=== PATIENT | female | born 1980 | race Caucasian/White ===

== ENCOUNTER 2022-02-28 06:53 | Inpatient (IN) | payer BC ==
[2022-02-28] MEDS ORDERED: Sodium Chloride 0.9% 10 ML Syringe FLUSH PRN (07:06)
[2022-02-28] MEDS ORDERED: ceFAZolin 2 GM in Sodium Chloride 0.9% 50 ML IV ONE (07:06)
[2022-02-28] MEDS ORDERED: Oxytocin/Lactated Ringers 10 UNIT/1,000 ML BAG IV SCH (07:15)
[2022-02-28] MEDS: Lactated Ringers 1,000 ML IV SCH ×2 (07:38→09:46)
[2022-02-28] MEDS ORDERED: Sodium Chloride 0.9% 10 ML Syringe FLUSH SCH (09:00)
[2022-02-28] MEDS ORDERED: Citric Acid/Sodium Citrate Solution 30 ML Cup PO ONE (09:00)
[2022-02-28] MEDS ORDERED: Metoclopramide 10 MG/2 ML SDV IVPUSH ONE (09:00)
[2022-02-28] MEDS ORDERED: Morphine PF 10 MG/10 ML SDV ONE (09:38)
[2022-02-28] MEDS ORDERED: fentaNYL 100 MCG/2 ML SDV ONE (09:39)
[2022-02-28] MEDS ORDERED: ceFAZolin 1 GM Vial ONE (09:39)
[2022-02-28] MEDS ORDERED: Oxytocin 10 Units/1 ML SDV ONE (09:40)
[2022-02-28] MEDS ORDERED: fentaNYL 100 MCG/2 ML SDV IVPUSH PRN (10:21)
[2022-02-28] MEDS ORDERED: Ondansetron 4 MG/2 ML SDV IVPUSH PRN (10:21)
[2022-02-28] MEDS ORDERED: Meperidine 50 MG/ML Vial IVPUSH PRN (10:21)
[2022-02-28] MEDS ORDERED: diphenhydrAMINE 50 MG/ML SDV IVPUSH PRN (10:21)
[2022-02-28] MEDS ORDERED: Ketorolac 30 MG/ML SDV ONE (10:34)
[2022-02-28] MEDS ORDERED: Carboprost Tromethamine 250 MCG/1 ML Amp ONE (11:00)
[2022-02-28] MEDS ORDERED: Methylergonovine 0.2 MG/1 ML Amp ONE (11:00)
[2022-02-28] MEDS ORDERED: Misoprostol 200 MCG Tab ONE (11:00)
[2022-02-28] MEDS ORDERED: ceFAZolin 1 GM in Sodium Chloride 0.9% 50 ML IV ONE (11:30)
[2022-02-28] MEDS ORDERED: Docusate Sodium 100 MG Cap PO PRN (12:05)
[2022-02-28] MEDS ORDERED: Dextrose 5%-Lactated Ringers 1,000 ML IV SCH (12:05)
[2022-02-28] MEDS ORDERED: Naloxone 0.4 MG/ML SDV IVPUSH PRN (12:05)
[2022-02-28] MEDS ORDERED: Acetaminophen/oxyCODONE 325-5 MG Tab PO PRN (12:10)
[2022-02-28] MEDS ORDERED: Lactated Ringers 500 ML IV ONE (14:42)
[2022-02-28] MEDS ORDERED: Verapamil 80 MG Tab PO SCH (15:00)
[2022-02-28] MEDS: Ketorolac 30 MG/ML SDV IVPUSH SCH (17:36)
[2022-03-01] MEDS: Ketorolac 30 MG/ML SDV IVPUSH SCH ×2 (00:17→06:31)
[2022-03-01] MEDS: VERAPAMIL 80 MG PO SCH ×3 (00:21→17:07)
[2022-03-01] MEDS: Acetaminophen/oxyCODONE 325-5 MG Tab PO PRN ×3 (10:35→20:36)
[2022-03-01] MEDS: Ibuprofen 600 MG Tab PO PRN ×2 (14:23→20:35)
[2022-03-02] MEDS: VERAPAMIL 80 MG PO SCH ×3 (02:31→16:07)
[2022-03-02] MEDS: Ibuprofen 600 MG Tab PO PRN ×2 (02:46→13:09)
[2022-03-02] MEDS: Acetaminophen/oxyCODONE 325-5 MG Tab PO PRN ×2 (02:48→09:06)
== END 2022-03-02 13:30 | disposition home or self-care (01) | DRG 540 ==
LOC: JD.OB 06:53 → UNDOADMIN 06:53 → JD.OB 06:54
PROVIDERS: ADMIT Obstetrics & Gynecology; ATTEND Obstetrics & Gynecology
PROC: 10D00Z1 Extraction of Products of Conception, Low, Open Approach (ICD-10-PCS; principal; 2022-02-28)
DX: O64.1XX0 Obstructed labor due to breech presentation, not applicable or unspecified (principal); O24.410 Gestational diabetes mellitus in pregnancy, diet controlled; Z3A.39 39 weeks gestation of pregnancy; Z37.0 Single live birth; O72.0 Third-stage hemorrhage; D62 Acute posthemorrhagic anemia; Z88.0 Allergy status to penicillin; Z88.2 Allergy status to sulfonamides; Z86.16 Personal history of COVID-19
CPT/HCPCS: 36415; 59025; 82947; 85025; 85027; 85384; 85610; 85730; 86592; 86850; 86900; 86901; 86922; A9270-GY; J0690; J1200; J1885; J2210; J2274; J2405; J2590; J2765; J3010; J7120; J7121

== ENCOUNTER 2022-09-01 16:54 | Emergency (ER) | payer BC ==
[2022-09-01] MEDS ORDERED: fentaNYL 100 MCG/2 ML SDV IVPUSH ONE (18:05)
[2022-09-01] MEDS ORDERED: Ketorolac 15 MG/ML SDV IVPUSH ONE (18:05)
[2022-09-01] MEDS ORDERED: Prochlorperazine 10 MG/2 ML SDV IVPUSH ONE (18:05)
[2022-09-01] MEDS ORDERED: oxyCODONE 5 MG Tab PO ONE (21:50)
[2022-09-01] MEDS ORDERED: Iopamidol 612 MG/ML 100 ML Bottle IVPUSH ONE (22:51)
== END 2022-09-01 22:21 | disposition home or self-care (01) ==
LOC: JD.ED 16:54
DX: S32.029A Unspecified fracture of second lumbar vertebra, initial encounter for closed fracture (principal); S33.5XXA Sprain of ligaments of lumbar spine, initial encounter; K21.9 Gastro-esophageal reflux disease without esophagitis; Z79.899 Other long term (current) drug therapy; Z88.0 Allergy status to penicillin; Z88.2 Allergy status to sulfonamides; W55.22XA Struck by cow, initial encounter
CPT/HCPCS: 72100; 73564; 74178; 81001; 81025; 96374; 96375; 99284; A9270; J0780; J1885; J3010; Q9967